=== PATIENT | female | born 1975 | race African-American/Black ===

== ENCOUNTER 2017-08-16 11:07 | Emergency (ER) | payer OTHER ==
[~2017-08-16] VITALS: Ht 170.2 cm; Wt 122.5 kg
[~2017-08-16 11:07] MED LIST: COMBIVENT INH; IBUPROFEN 800800 M1 PO; IBUPROFEN 800800 MG PO; MEDROL DOSPAK21 TAB PO; NAPROSYN500 MG PO; NOHOMEMEDICATIONS; NORCO 5-325 TA1 EACH PO; PERCOCET 10-321 EACH PO; PREDNISONE50 MG PO; TESSALON PERLE100 MG PO; ZPAK PO
[2017-08-16 11:18] VITALS: BP 130/85
[2017-08-16] MEDS ORDERED: TUSSIONEX PENN115 ML PO (11:42)
[2017-08-16] MEDS ORDERED: PROVENTIL HFA6.7 G1 INH (11:42)
[2017-08-16] MEDS ORDERED: PREDNISONE50 MG PO (11:54)
== END 2017-08-16 11:55 | disposition home or self-care (01) ==
LOC: ER 11:07
DX: J06.9 Acute upper respiratory infection, unspecified (principal); J98.01 Acute bronchospasm; M54.9 Dorsalgia, unspecified; I10 Essential (primary) hypertension; E11.9 Type 2 diabetes mellitus without complications